=== PATIENT | male | born 1990 | race Caucasian/White ===

== ENCOUNTER 2021-07-12 13:14 | Emergency (ER) | payer OTHER, SELFPAY | END 2021-07-12 15:02 | disposition home or self-care (01) | LOC: CSHERS 13:14 | DX: M70.21 Olecranon bursitis, right elbow (principal); F17.210 Nicotine dependence, cigarettes, uncomplicated | CPT/HCPCS: 99283 ==

== ENCOUNTER 2023-10-07 10:07 | Outpatient (CLI) | payer OTHER | END 2023-10-07 10:08 | disposition home or self-care (01) | LOC: CSHWCC 10:07 | PROVIDERS: ATTEND Preventive Medicine Undersea and Hyperbaric Medicine | DX: S01.01XD Laceration without foreign body of scalp, subsequent encounter (principal) | CPT/HCPCS: 99213; G0463 ==